=== PATIENT | female | born 1960 | race Caucasian/White ===

== ENCOUNTER 2022-02-20 13:32 | Emergency (ER) | payer OTHER, SELFPAY ==
[2022-02-20 13:38] VITALS: BP 115/78; PULSE 100; RESP 22; TEMP 37.7; O2SAT 95
--- NOTE | 2022-02-20 14:11 | ED.URI ---
HPI - URI/Sore Throat General Chief Complaint: Upper Respiratory Infection Stated Complaint: sneezing cough Time Seen by Provider: 02/20/22 14:11 Source: patient and RN notes reviewed Mode of arrival: ambulatory Limitations: no limitations History of Present Illness HPI Narrative: 61-year-old female with history of COPD presents with concern with 1 week of coughing, sneezing, wheezing. Reports she has been using her albuterol inhaler more often than usual. She reports has been taking an [id number] multisymptom medicine without relief. She denies fever, bodies, chills, sweats. Reports she has been taking her COPD medications as prescribed. MD elicited complaint: cough and sore throat Related Data Home Medications Medication Instructions Recorded Confirmed albuterol sulfate 90 mcg/actuation inh inhalation 02/20/22 aerosol inhaler amlodipine 5 mg tablet tablet 02/20/22 atorvastatin 10 mg tablet tablet 02/20/22 budesonide-formoterol HFA 160 inh inhalation 02/20/22 mcg-4.5 mcg/actuation aerosol inhaler (Symbicort) fluticasone furoate 100 inhalation 02/20/22 mcg-vilanterol 25 mcg/dose inhalation powder (Breo Ellipta) meloxicam 15 mg tablet tablet 02/20/22 spironolactone 25 mg tablet tablet 02/20/22 telmisartan 80 tablet 02/20/22 mg-hydrochlorothiazide 25 mg tablet venlafaxine 37.5 mg cap PO 02/20/22 capsule,extended release 24 hr Allergies Allergy/AdvReac Type Severity Reaction Status Date / Time codeine Allergy Rash Verified 02/20/22 13:51 Review of Systems Review of Systems: CONSTITUTIONAL: Reports malaise. Denies chills, sweats, or fever. EYES: Denies visual changes, redness, or discharge. ENT: Reports rhinorrhea, congestion, and sore throat. CARDIOVASCULAR: Denies chest pain, palpitations, or edema. RESPIRATORY: Reports cough, occasional dyspnea. GASTROINTESTINAL: Denies abdominal pain, nausea, vomiting, diarrhea SKIN: Denies rash or itching. MUSCULOSKELETAL: Denies myalgia. NEUROLOGIC: Denies headache. All systems reviewed & are unremarkable except as noted in HPI and below PMFSH Comments At time of signature, agree with nursing past medical, surgical, social and family history. There is no relevant family history pertinent to the presenting complaint Exam Narrative: GENERAL: Nontoxic-appearing and in no acute distress. HEAD: Normocephalic EYES: PERRLA, conjunctivae clear ENT: Nares clear, clear discharge. Mucous membranes moist. TM pearly bush with dull light reflex bilaterally; no tragal tenderness. Oropharynx not erythematous without lesions. Tonsils not enlarged and without exudate, no drooling, no trismus, uvula midline. NECK: Supple. No lymphadenopathy CHEST: Clear to auscultation, breath sounds equal. No wheezing, rhonchi, rales, or stridor. No respiratory distress, speaks in full sentences. Cough noted, slight hoarse voice HEART: Regular rate and rhythm. No murmur heard. SKIN: Warm, dry, no rash. NEURO: Alert and oriented x3. PSYCH: Normal mood and affect Course Course Emergency Course: Patient is aware of diagnosis, understands and agrees to treatment plan. Anticipatory guidance given. Patient agrees to follow-up as directed and is aware of reasons to seek care at the emergency department. Portions of this record may have been created with voice recognition software Level of Care: Express Care Visit Vital Signs Vital signs: Vital Signs Temperature 99.9 F H 02/20/22 13:38 Pulse Rate 100 02/20/22 13:38 Respiratory Rate 22 H 02/20/22 13:38 Blood Pressure 115/78 02/20/22 13:38 Pulse Oximetry 95 02/20/22 13:38 Oxygen Delivery Room Air 02/20/22 13:38 Temperature 99.9 F H 02/20/22 13:38 Pulse Rate 100 02/20/22 13:38 Respiratory Rate 22 H 02/20/22 13:38 Blood Pressure 115/78 02/20/22 13:38 Pulse Oximetry 95 02/20/22 13:38 Oxygen Delivery Room Air 02/20/22 13:38 Reviewed. MDM - URI/Sore Throat MDM Narrative Medical
== END 2022-02-20 14:27 | disposition home or self-care (01) ==
PROVIDERS: Emergency Provider Nurse Practitioner; PCP Internal Medicine
DX: J06.9 Acute upper respiratory infection, unspecified (principal)
CPT/HCPCS: 99213; G0463